=== PATIENT | male | born 1985 | race Caucasian/White ===

== ENCOUNTER 2020-05-08 14:53 | Emergency (ER) | payer OTHER, SELFPAY ==
[2020-05-08 15:01] VITALS: BP 138/69; PULSE 70; RESP 18; TEMP 36.9; O2SAT 98; BMI 25.1
--- NOTE | 2020-05-08 15:04 | DI.RAD.S_ITS ---
PROCEDURE: XR KNEE RT 1TO2V INDICATIONS: unable to bear wt. TECHNIQUE: 2 views of the knee were acquired. COMPARISON: None. FINDINGS: Bones: Medial tibial plateau fracture. Minimal displacement and subsidence. No dislocations. No suspicious bony lesions. Excess ptosis at the distal femoral shaft laterally. Soft tissues: Large joint effusion with lipohemarthrosis. No suspicious soft tissue calcifications. IMPRESSION: Medial tibial plateau fracture. Schatzker type 4. Dictated by: Jefferson Saucedo M.D. on 05/08/2020 at 14:21 Approved by: Jefferson Saucedo M.D. on 05/08/2020 at 14:23
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
[2020-05-08] MEDS: MORPHINE 4 MG/ML INJ IM (16:41)
[2020-05-08] MEDS: ONDANSETRON 4 MG ODT SL (16:41)
[2020-05-08 16:49] VITALS: BP 150/70; PULSE 69; RESP 18; O2SAT 99
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
[2020-05-08 18:30] VITALS: BP 143/77; PULSE 64; RESP 16; O2SAT 99
[2020-05-08] MEDS: HYDROCODONE/ACET 5/325 TABLET 1 TAB PO (18:48)
[2020-05-08 20:11] LABS: COVID19 -Nasal RAPID Negative (Negative)
[2020-05-08 20:45] VITALS: BP 141/85; PULSE 52; RESP 18; O2SAT 98
== END 2020-05-08 20:47 | disposition short-term general hospital (02) ==
PROVIDERS: Emergency Provider Emergency Medicine
DX: S82.201A Unspecified fracture of shaft of right tibia, initial encounter for closed fracture (principal); Y93.55 Activity, bike riding
CPT/HCPCS: 73560; 73700; 87635; 96372; 99284; C9803; J2270

== ENCOUNTER → 2021-03-10 11:45 | Outpatient (CLI) | payer OTHER, SELFPAY ==
[2021-03-10 13:41] LABS: COVID19 -Nasal RAPID POSITIVE (Negative)
== END ==
PROVIDERS: PCP Family Medicine; Visit Provider Physician Assistant
DX: Z20.822 Contact with and (suspected) exposure to COVID-19 (principal); R43.2 Parageusia; R43.0 Anosmia
CPT/HCPCS: 87635

== ENCOUNTER 2023-08-17 13:33 | Emergency (ER) | payer OTHER, SELFPAY ==
[2023-08-17 13:40] VITALS: BP 129/81; PULSE 86; RESP 18; TEMP 36.4; O2SAT 99
[2023-08-17] MEDS: LIDOCAINE 1% (PF) 5 ML INJ (16:56)
--- NOTE | 2023-08-17 17:19 | ED.WOUNDLAC ---
HPI - Wound/Laceration <Minoo Vernon PA-C - Last Filed: 08/17/23 19:26> General Chief Complaint: Wound/Laceration Stated Complaint: fell [place] skate park, hit elbow Time Seen by Provider: 08/17/23 14:35 Source: patient Mode of arrival: Ambulatory History of Present Illness HPI narrative: 37-year-old male here today for a left elbow injury. He was skateboarding at a skate park when he struck his left elbow on a railing. He initially was able to move his elbow right away and carried his skateboard with the affected arm but then noticed a few minutes later that it was bleeding. He has no pain with movement of his elbow or arm at this time just concerns about the laceration on the elbow. Related Data Home Medications Medication Instructions Recorded Confirmed enoxaparin 30 mg/0.3 mL 30 mg SUBCUT Q12H 06/01/20 06/01/20 subcutaneous syringe naloxone 4 mg/actuation nasal spray intranasal 06/01/20 06/01/20 Previous Rx's Medication Instructions Recorded oxycodone 5 mg tablet 5 mg PO Q8H PRN pain #30 tabs 06/22/20 Allergies Allergy/AdvReac Type Severity Reaction Status Date / Time No Known Drug Allergies Allergy Verified 08/17/23 13:40 Review of Systems <Minoo Vernon PA-C - Last Filed: 08/17/23 19:26> Review of Systems ROS Unobtainable: All systems reviewed & are unremarkable except as noted in HPI and below Patient History <Minoo Vernon PA-C - Last Filed: 08/17/23 19:26> Medical History Chicken pox Fracture of right tibial plateau Surgical History (Updated 06/21/20 @ 20:59 by Karen Trujillo) Anesthesia History of tonsillectomy and adenoidectomy (~1989) Family History (Updated 06/21/20 @ 21:08 by Karen Trujillo) Father Hypertension Mother Breast cancer History of underactive thyroid Brother History of underactive thyroid Sister Diabetes mellitus Hypertension Grandfather Cancer Diabetes mellitus Grandfather Hypertension Social History Smoking Status: Current every day smoker quit status: not considering quitting alcohol intake: current (4 [place] hard lemonades per week ) substance use type: marijuana (X<1/2 gram per day ) Smoking Status: Current every day smoker alcohol intake frequency: 0-2 drinks per day Substance Use Type: marijuana Exam <Minoo Vernon PA-C - Last Filed: 08/17/23 19:26> Narrative Exam Narrative: GENERAL: Well-developed, well-nourished, appears stated age. In no acute distress HEAD: Atraumatic. Normocephalic. EYES: Pupils equal round and reactive. Extraocular motions intact. No scleral icterus. No injection or drainage. ENT: Nose without bleeding, purulent drainage. Airway patent. NECK: Trachea midline. Non tender RESPIRATORY: Respiratory rate and effort normal EXTREMITIES: No edema or joint tenderness. Normal range of motion of the left elbow. There is some olecranon swelling which appears consistent with traumatic bursitis but no bony tenderness or deformity. NEURO: AOx3. Normal strength and sensation in the left upper extremity SKIN: 2.5 cm gaping laceration to the left elbow, linear, no foreign body noted Initial Vital Signs Initial Vital Signs: Vital Signs Temperature 97.6 F 08/17/23 13:40 Pulse Rate 86 08/17/23 13:40 Respiratory Rate 18 08/17/23 13:40 Blood Pressure 129/81 08/17/23 13:40 Pulse Oximetry 99 08/17/23 13:40 Oxygen Delivery Method Room Air 08/17/23 13:40 <Jc Smith DO - Last Filed: 08/22/23 07:10> Initial Vital Signs Initial Vital Signs: Vital Signs Temperature 97.6 F 08/17/23 13:40 Pulse Rate 86 08/17/23 13:40 Respiratory Rate 18 08/17/23 13:40 Blood Pressure 129/81 08/17/23 13:40 Pulse Oximetry 99 08/17/23 13:40 Oxygen Delivery Method Room Air 08/17/23 13:40 Procedures <Minoo Vernon PA-C - Last Filed: 08/17/23 19:26> Laceration Repair Laceration 1: Time of procedure: 16:45 Site: upper extremity (Left elbow) Size (cm): 2.5 Description: linear Depth: simple, single layer Local Anesthetic: lidocaine 1% and with epi Amount of anesthesia used (mL): 4 Pre-repair: irrigated extensively Skin layer closed with: nylon Skin layer suture size: 4-0 Number of sutures: 4 Technique: simple, interrupted Course <Minoo Vernon PA-C - Last Filed: 08/17/23 19:26> Orders Ordered: Discontinued Medications Lidocaine HCl (Lidocaine 1% (Pf) 5 Ml) 5 ml INJ NOW ONE Stop: 08/17/23 15:26 Last Admin: 08/17/23 16:56 Dose: 5 ml Documented By: PAULINA Vital Signs Vital signs: Vital Signs - 8 hr 08/17/23 13:40 08/17/23 17:23 Temperature 97.6 F 98.8 F Pulse Rate 86 80 Respiratory Rate 18 18 Blood Pressure 129/81 129/82 Pulse Oximetry 99 99 Oxygen Delivery Method Room Air Room Air <Jc Smith DO - Last Filed: 08/22/23 07:10> Orders Ordered: Discontinued Medications Lidocaine HCl (Lidocaine 1% (Pf) 5 Ml) 5 ml INJ NOW ONE Stop: 08/17/23 15:26 Last Admin: 08/17/23 16:56 Dose: 5 ml Documented By: PAULINA Vital Signs Vital signs: Vital Signs - 8 hr 08/17/23 13:40 08/17/23 17:23 Temperature 97.6 F 98.8 F Pulse Rate 86 80 Respiratory Rate 18 18 Blood Pressure 129/81 129/82 Pulse Oximetry 99 99 Oxygen Delivery Method Room Air Room Air MDM - Wound/Laceration <Minoo Vernon PA-C - Last Filed: 08/17/23 19:26> [facility] Narrative Medical decision making narrative: Patient sustained a laceration to his left elbow and there is moderate localized swelling to the area however palpation of the swelling is consistent with traumatic bursitis. He has no bony tenderness or deformity and he has full range of motion without any pain of the left elbow. He has normal strength, sensation, and distal pulses of his left upper extremity. Therefore no x-ray was indicated as he has no symptoms or evidence of fracture. Laceration was repaired without any complication and patient tolerated well. Wound care instructions were given and patient advised to return for suture removal in 7-10 days. Signs of infection discussed and patient advised to return to the ED should these occur. If he does start to have significant pain with range of motion of the elbow or pain that is not improving or resolving then he was advised to follow up for an x-ray. I gave him the option of xray today but he declined and I do not feel it is necessary. Discharge Plan Departure Patient Disposition: Home Clinical Impression: Laceration of elbow Qualifiers: Encounter type: initial encounter Laterality: left Qualified Code(s): S51.012A - Laceration without foreign body of left elbow, initial encounter Instructions: DI for Laceration Repair Activity Restrictions/Additional Instructions: Thank you for choosing us to care for you today. You were seen for left elbow injury and 4 stitches were placed. There was not any indication that an x-ray was needed at this time. Please wash your stitches with soap and water twice daily and keep it covered and bandaged. Please take care not to lean on your elbow or bump it on anything. Monitor for signs of infection including redness, swelling, discharge from the wound, or increased pain and return to the emergency department if any of these occur.. Please follow up in 7-10 days for suture removal. Prescriptions: No Action Narcan 4 mg/actuation spray,non-aerosol intranasal enoxaparin 30 mg/0.3 mL syringe 30 mg SUBCUT Q12H oxycodone 5 mg tablet 5 mg PO Q8H PRN (Reason: pain) Qty: 30 0RF Referrals: Enrique Lyon DO [Primary Care Provider] - Stand Alone Forms: Patient Portal/API ED Sign-out <Jc Smith DO - Last Filed: 08/22/23 07:10> [facility] Dr Smith Co-Sign Statement: I was available for consultation during this patient's emergency department visit. This chart is signed by myself for administrative purposes only. I did not have direct contact with this patient during this visit. They were seen independently by the APC.
[2023-08-17 17:23] VITALS: BP 129/82; PULSE 80; RESP 18; TEMP 37.1; O2SAT 99
== END 2023-08-17 17:43 | disposition home or self-care (01) ==
PROVIDERS: Emergency Provider Physician Assistant; PCP Family Medicine
DX: S51.012A Laceration without foreign body of left elbow, initial encounter (principal); W22.09XA Striking against other stationary object, initial encounter; Y93.51 Activity, roller skating (inline) and skateboarding
CPT/HCPCS: 12001; 99283